=== PATIENT | female | born 1960 | race Two or more races ===

== ENCOUNTER 2024-12-02 07:00 | Day surgery (SDC) | payer OTHER ==
[2024-11-28 08:50] VITALS: BP 170/100
[2024-11-28 08:51] VITALS: BP 150/100
[2024-11-28 09:01] LABS: URINE APPEARANCE Clear; URINE BILIRRUBIN Negative (NEGATIVE); URINE BLOOD Negative; URINE COLOR Yellow; URINE GLUCOSE Negative (NEGATIVE); URINE KETONE Negative (NEGATIVE); URINE LEUKOCYTE Negative; URINE NITRATE Negative; URINE PROTEIN Negative (NEGATIVE); URINE UROBILINOGEN 0.2 E.U./dl
[2024-11-28 09:02] LABS: URINE BACTERIA 819.4 uL (0.0-1933); URINE EPITHELIAL CELLS 7.8 uL (0.0-38.8); URINE RBC 7.1 uL (0.0-20.8); URINE WBC 2.7 uL (0.0-23.2)
[2024-11-28 09:05] LABS: BASO % 0.5 % (0.1-1.2); EOS # 0.30 (0.04-0.54); EOS % 4.0 % (0.7-7.0); LYMPH # 1.83 (1.18-3.74); LYMPH % 24.2 % (19.3-53.1); MEAN PLATELET VOLUME 12.30 fl (9.4-12.4); MONO # 0.47 (0.24-0.82); MONO % 6.2 % (4.7-12.5); NEUT # 4.91 (1.56-6.13); NEUT % 64.8 % (34.0-71.1); RED CELL DISTRIBUTION WIDTH 13.8 % (11.6-14.4); URINE CAST 0.00 uL (0.0-1.40)
[2024-11-28 09:33] LABS: INR 0.95
[2024-11-28 09:39] LABS: ALT/SGPT 39.0 U/L (12-78); AST/SGOT 21.0 U/L (15-37); BILIRUBIN TOTAL 1.02 mg/dL (0.3-1.2); BUN CREA RATIO 22.0 (7.0-25.0); CREATININE SERUM 0.82 mg/dL (0.55-1.02); GFR 70.41; GLOBULINA 3.4 G/DL (2.4-3.5); GLUCOSE FASTING 159.0 mg/dL (65-100); OSMOLALITY SERUM 287.0 MOSM/KG (275-295)
[~2024-12-02] VITALS: Ht 157.5 cm; Wt 72.1 kg
[~2024-12-02 07:00] MED LIST: CARVEDILOL6.25 MG; LIPITOR40 MG PO; LOSARTAN-HCTZ1 EAC1 PO; METFORMIN HCL500 M3 PO; MULTIPLE VITAM1 EAC2 PO; NORVASC2.5 M1 PO
[2024-12-02] MEDS ORDERED: ONDANSETRON HCL 2 MG/ML VIAL IV ONE (11:00)
[2024-12-02] MEDS ORDERED: KETOROLAC TROMETHAMINE 30 MG VIAL IV ONE (11:00)
[2024-12-02] MEDS ORDERED: POVIDONE-IODINE 118 ML BOTT TOP ONE (11:30)
[2024-12-02] MEDS ORDERED: ENALAPRILAT DIHYDRATE 1.25 MG/ML VIAL IV ONE (14:30)
== END 2024-12-02 16:25 | disposition home or self-care (01) ==
LOC: CIR.AMB 07:00
PROVIDERS: ATTEND Obstetrics & Gynecology
DX: N89.0 Mild vaginal dysplasia (principal)